=== PATIENT | female | born 1980 | race Caucasian/White ===

== ENCOUNTER 2021-01-04 16:04 | Emergency (ER) | payer OTHER ==
[2021-01-04] MEDS ORDERED: diphenhydrAMINE 50 MG/ML SDV IVPUSH ONE (16:53)
[2021-01-04] MEDS ORDERED: methylPREDNISolone Sodium Succinate 125 MG/2 ML SDV IV ONE (16:53)
[2021-01-04] MEDS ORDERED: Famotidine 20 MG/2 ML SDV IVPUSH ONE (16:53)
[2021-01-04] MEDS ORDERED: Sodium Chloride 0.9% 1,000 ML IV SCH (17:00)
--- NOTE | 2021-01-04 17:42 | EDM.PDOC ---
ED HPI GENERAL MEDICAL PROBLEM - General Chief Complaint: Allergic Reaction Stated Complaint: ALLERGIC REACTION TO BEE STING Time Seen by Provider: 01/04/21 16:38 Source of Information: Reports: Patient History Limitations: Reports: No Limitations - History of Present Illness INITIAL COMMENTS - FREE TEXT/NARRATIVE: 40 yo female presents to ER following a sting to her left flank. burning pain with rash to trunk, neck and arms. swelling in lower extremities. denies SOB or wheezing. has not had reaction previously to stings - Related Data Allergies Allergy/AdvReac Type Severity Reaction Status Date / Time amoxicillin Allergy Hives Verified 01/04/21 16:37 ciprofloxacin [From Cipro] Allergy Chest Pain Verified 01/04/21 16:37 Sulfa (Sulfonamide Allergy Hives Verified 01/04/21 16:37 Antibiotics) Home Meds: Home Meds Omeprazole 1 tab PO DAILY 01/04/21 [History] atorvaSTATin [Lipitor] 1 tab PO DAILY 01/04/21 [History] buPROPion [buPROPion XL] 1 tab PO DAILY 01/04/21 [History] Past Medical History Cardiovascular History: Reports: High Cholesterol Gastrointestinal History: Reports: GERD Social & Family History - Tobacco Use Tobacco Use Status *Q: Never Tobacco User ED ROS ALLERGIC REACTION - Review of Systems Review Of Systems: See Below Constitutional: Denies: Fever Respiratory: Denies: Shortness of Breath, Wheezing Cardiovascular: Denies: Chest Pain ED EXAM GENERAL NO PERIP PULSE - Physical Exam Exam: See Below Exam Limited By: No Limitations General Appearance: Alert, WD/WN, No Apparent Distress Respiratory/Chest: No Respiratory Distress, Lungs Clear, Normal Breath Sounds, No Accessory Muscle Use. No: Crackles, Rhonchi, Wheezing Cardiovascular: Normal Peripheral Pulses, No Murmur, Tachycardia, Other (lower extremity edema) GI/Abdominal: Soft, Non-Tender Skin Exam: Warm, Dry, Intact, Rash (erythemic nonraised lv entire trunk. warm to the touch. ) Course - Vital Signs Last Recorded V/S: Last Vital Signs Temp 36.5 C 01/04/21 16:47 Pulse 92 01/04/21 16:47 Resp 16 01/04/21 16:47 BP 125/91 H 01/04/21 16:47 Pulse Ox 96 01/04/21 16:47 - Orders/Labs/Meds Orders: Active Orders 24 hr Category Date Time Status Sodium Chloride 0.9% [Normal Saline] 1,000 ml Med 01/04/21 17:00 Active IV .BOLUS Medication Orders Sodium Chloride (Normal Saline) 1,000 mls @ 500 mls/hr IV .BOLUS MAN Last Admin: 01/04/21 17:25 Dose: 500 mls/hr Documented by: REMINGTON Meds: Medications Generic Name Dose Route Start Last Admin Trade Name Freq PRN Reason Stop Dose Admin Sodium Chloride 1,000 mls @ 500 mls/hr 01/04/21 17:00 01/04/21 17:25 Normal Saline IV 500 mls/hr .BOLUS MAN Administration Discontinued Medications Generic Name Dose Route Start Last Admin Trade Name Freq PRN Reason Stop Dose Admin Diphenhydramine HCl 50 mg 01/04/21 16:53 01/04/21 17:26 Diphenhydramine 50 Mg/Ml Sdv IVPUSH 01/04/21 16:54 50 mg ONETIME ONE Administration Famotidine 20 mg 01/04/21 16:53 01/04/21 17:26 Famotidine 20 Mg/2 Ml Sdv IVPUSH 01/04/21 16:54 20 mg ONETIME ONE Administration Methylprednisolone Sodium Succinate 125 mg 01/04/21 16:53 01/04/21 17:26 Methylprednisolone Sodium Succinate 125 Mg/2 Ml Sdv IV 01/04/21 16:54 125 mg ONETIME ONE Administration - Re-Assessments/Exams Free Text/Narrative Re-Assessment/Exam: 01/04/21 17:39 rash improved but not resolved. Departure - Departure Time of Disposition: 17:41 Disposition: Home, Self-Care 01 Condition: Good Clinical Impression: Insect sting Qualifiers: Encounter type: initial encounter Injury intent: accidental or unintentional Qualified Code(s): T63.481A - Toxic effect of venom of other arthropod, accidental (unintentional), initial encounter - Discharge Information *PRESCRIPTION DRUG MONITORING PROGRAM REVIEWED*: Not Applicable *COPY OF PRESCRIPTION DRUG MONITORING REPORT IN PATIENT [place]: Not Applicable Instructions: Bee, Wasp, or Hornet Sting, Adult Referrals: PCP,None [Primary Care Provider] - Additional Instructions: Benadryl as needed for night time itching you may use Claritin or Zyrtec during the day if needed increase fluid intake with goal 1.5 L per day this will help flush the venom and stress hormone response from your system. you may still be itching around the sting site for the next week you can use topical steroid cream such as hydrocortisone as needed Sepsis Event Note (ED) - Focused Exam Vital Signs: Vital Signs Temp Pulse Resp BP Pulse Ox 01/04/21 16:47 36.5 C 92 16 125/91 H 96 01/04/21 16:31 36.5 C 104 H 16 145/103 H 96 - My Orders Last 24 Hours: My Active Orders 01/04/21 17:00 Sodium Chloride 0.9% [Normal Saline] 1,000 ml IV .BOLUS - Assessment/Plan Last 24 Hours: My Active Orders 01/04/21 17:00 Sodium Chloride 0.9% [Normal Saline] 1,000 ml IV .BOLUS
== END 2021-01-04 18:52 | disposition home or self-care (01) ==
LOC: JP.ED 16:04
DX: T63.481A Toxic effect of venom of other arthropod, accidental (unintentional), initial encounter (principal); K21.9 Gastro-esophageal reflux disease without esophagitis; E78.00 Pure hypercholesterolemia, unspecified; Z88.0 Allergy status to penicillin; Z88.1 Allergy status to other antibiotic agents; Z88.2 Allergy status to sulfonamides; Z79.899 Other long term (current) drug therapy
CPT/HCPCS: 96374; 96375; 99282; J1200; J2930; J3490; J7030